=== PATIENT | male | born 1995 | race African-American/Black ===

== ENCOUNTER 2022-03-05 10:38 | Emergency (ER) | payer SELFPAY ==
[2022-03-05 10:41] VITALS: BP 142/97; PULSE 64; RESP 18; TEMP 36.5; O2SAT 99
--- NOTE | 2022-03-05 11:06 | ED.GENADULT ---
HPI - General Adult General Chief complaint: Environmental Exposure Stated complaint: environmental Time Seen by Provider: 03/05/22 10:45 History of Present Illness HPI narrative: 27-year-old male presents to the emergency room for evaluation of allergic reaction to an unknown substance while at work. Patient states he was removing a TV off of a wall, when he looked behind the TV and was exposed to an orange-colored dust. Patient states he inhaled the dust and it also got on his head and shoulders. Ports a burning sensation on his skin and on respiration. Reports irrigating his skin at a local [facility]. Following irrigation, patient states symptoms began to resolve. Related Data Allergies Allergy/AdvReac Type Severity Reaction Status Date / Time No Known Drug Allergies Allergy Other Verified 03/05/22 10:48 Review of Systems Review of Systems: CONSTITUTIONAL: Denies fever, chills, or sweats. EYES: Denies visual changes, redness, or discharge. ENT: Denies rhinorrhea, congestion, sore throat, or otalgia. CARDIOVASCULAR: Denies chest pain, palpitations, or edema. RESPIRATORY: Reports burning on respiration GASTROINTESTINAL: Denies abdominal pain, nausea, vomiting, or diarrhea. GENITOURINARY: Denies dysuria or hematuria. SKIN: Rash to head and shoulders MUSCULOSKELETAL: Denies back pain, joint pain, or myalgia. NEUROLOGIC: Denies headache, numbness, dizziness, or weakness. PSYCHIATRIC: Denies anxiety or depression. Exam Narrative: GENERAL: Well-appearing, well-nourished, no physical limitations, and in no acute distress. HEAD: Normocephalic, atraumatic. EYES: Conjunctivae normal, PERRLA and EOMI. CHEST: Clear to auscultation. No respiratory distress. No wheezes rales or rhonchi. No tenderness. HEART: Regular rate and rhythm. No murmur heard. Normal peripheral pulses. EXTREMITIES: Normal range of motion. No edema. No clubbing or cyanosis SKIN: Warm, dry, no rash. No noted wounds NEURO: No focal deficits. Alert and oriented x3. MAEW. CN's II-XI intact bilaterally, normal gait PSYCH: Cooperative. Normal mood and affect. Course Vital Signs Vital signs: Vital Signs Temperature 36.5 C 03/05/22 10:41 Pulse Rate 64 03/05/22 10:41 Respiratory Rate 18 03/05/22 10:41 Blood Pressure 142/97 H 03/05/22 10:41 Pulse Oximetry 99 03/05/22 10:41 Temperature 36.5 C 03/05/22 10:41 Pulse Rate 64 03/05/22 10:41 Respiratory Rate 18 03/05/22 10:41 Blood Pressure 142/97 H 03/05/22 10:41 Pulse Oximetry 99 03/05/22 10:41 Medical Decision Making Vital Signs Vital Signs: Vital Signs Temperature 36.5 C 03/05/22 10:41 Pulse Rate 64 03/05/22 10:41 Respiratory Rate 18 03/05/22 10:41 Blood Pressure 142/97 H 03/05/22 10:41 Pulse Oximetry 99 03/05/22 10:41 Temperature 36.5 C 03/05/22 10:41 Pulse Rate 64 03/05/22 10:41 Respiratory Rate 18 03/05/22 10:41 Blood Pressure 142/97 H 03/05/22 10:41 Pulse Oximetry 99 03/05/22 10:41 Discharge Plan Discharge Clinical Impression: Work environment adverse effect, Allergic reaction Patient Disposition: Home, Self-Care Condition: Stable Instructions: Antibiotic Form, General Allergic Reaction (ED) Additional Instructions: Recommend taking Benadryl as needed for the itching and burning. Take prednisone starting tomorrow. Return to the emergency room if you begin to develop shortness of breath or difficulty breathing. Prescriptions: New prednisone 20 mg tablet 60 mg PO DAILY 5 Days Qty: 15 0RF Follow-up/Referrals: PHYSICIAN,HOSE MENDER [Primary Care Provider] - Time of Disposition: 11:05
--- NOTE | 2022-03-05 11:40 | ED_ITS ---
HPI - General Adult General Chief complaint: Environmental Exposure Stated complaint: environmental Time Seen by Provider: 03/05/22 10:45 Related Data Allergies Allergy/AdvReac Type Severity Reaction Status Date / Time No Known Drug Allergies Allergy Other Verified 03/05/22 10:48 Course Vital Signs Vital signs: Vital Signs Temperature 36.5 C 03/05/22 10:41 Pulse Rate 64 03/05/22 10:41 Respiratory Rate 18 03/05/22 10:41 Blood Pressure 142/97 H 03/05/22 10:41 Pulse Oximetry 99 03/05/22 10:41 Temperature 36.5 C 03/05/22 10:41 Pulse Rate 64 03/05/22 10:41 Respiratory Rate 18 03/05/22 10:41 Blood Pressure 142/97 H 03/05/22 10:41 Pulse Oximetry 99 03/05/22 10:41 Medical Decision Making Vital Signs Vital Signs: Vital Signs Temperature 36.5 C 03/05/22 10:41 Pulse Rate 64 03/05/22 10:41 Respiratory Rate 18 03/05/22 10:41 Blood Pressure 142/97 H 03/05/22 10:41 Pulse Oximetry 99 03/05/22 10:41 Temperature 36.5 C 03/05/22 10:41 Pulse Rate 64 03/05/22 10:41 Respiratory Rate 18 03/05/22 10:41 Blood Pressure 142/97 H 03/05/22 10:41 Pulse Oximetry 99 03/05/22 10:41 Discharge Plan Discharge Clinical Impression: Work environment adverse effect, Allergic reaction Patient Disposition: Home, Self-Care Condition: Stable Instructions: Antibiotic Form, General Allergic Reaction (ED) Additional Instructions: Recommend taking Benadryl as needed for the itching and burning. Take prednisone starting tomorrow. Return to the emergency room if you begin to develop shortness of breath or difficulty breathing. Prescriptions: New prednisone 20 mg tablet 60 mg PO DAILY 5 Days Qty: 15 0RF Follow-up/Referrals: PHYSICIAN,DIESEL [employer]OF[employer] INSTALLER [Primary Care Provider] - Time of Disposition: 11:05
== END 2022-03-05 11:40 | disposition home or self-care (01) ==
LOC: ANHED 11:37
PROVIDERS: Emergency Provider Nurse Practitioner Family
DX: T65.91XA Toxic effect of unspecified substance, accidental (unintentional), initial encounter (principal); R20.8 Other disturbances of skin sensation; R06.9 Unspecified abnormalities of breathing; Y99.0 Civilian activity done for income or pay
CPT/HCPCS: 96372; 99283; J1100